=== PATIENT | female | born 1950 | race African-American/Black ===

== ENCOUNTER 2018-02-19 14:05 | Emergency (ER) | payer MEDICARE, OTHER ==
[~2018-02-19] VITALS: Ht 172.7 cm; Wt 104.3 kg
[2018-02-19] MEDS ORDERED: Isovue-300 100ml vial INJ PRN (14:15)
[2018-02-19] MEDS ORDERED: Ketorolac 30mg Inj IV ONE (14:15)
--- NOTE | 2018-02-19 14:20 | Emergency Room Report ---
History of Present Illness General Chief Complaint: Pain Source: Patient Present Illness HPI Patient is a 67-year-old female who presented after increased left-sided leg pain. The patient was having increased severe pain to the left lower extremity. This had began last night. Patient was having increased difficulty with ambulation. She denies recent trauma. Patient reports having crampy pain with did not radiate. She denies any vomiting or diarrhea or abdominal discomfort. She reports having prior history of breast cancer and mastectomy but did not have any chemotherapy. Allergies: Coded Allergies: No Known Allergies (Unverified , 02/19/18) Patient History Past Medical History: see triage record Reviewed Nursing Documentation: PMH: Agreed; PSxH: Agreed Nursing Documentation-PMH Past Medical History: No Stated History Review of Systems All Other Systems: negative except mentioned in HPI Physical Exam Vital Signs Date Time Temp Pulse Resp B/P (MAP) Pulse Ox O2 Delivery O2 Flow Rate FiO2 02/19/18 13:59 97.9 53 18 170/95 98 Room Air 97.9 Sp02 EP Interpretation: reviewed, normal General Appearance: normal inspection, alert, obese Head: atraumatic ENT: normal ENT inspection, hearing grossly normal, normal voice Neck: normal inspection, full range of motion, supple, no bony tend Respiratory: normal inspection, lungs clear, normal breath sounds, no respiratory distress, no retraction, no wheezing Cardiovascular #1: regular rate, rhythm, no edema Cardiovascular #2: 3+ femoral (R), 3+ femoral (L), 3+ dorsalis pedis (R), 3+ dorsalis pedis (L) Gastrointestinal: normal inspection, normal bowel sounds, non tender, soft, no guarding, no hernia Genitourinary: no CVA tenderness Musculoskeletal: back normal, decreased range of motion, other - weakness left lower extremity Neurologic: normal inspection, alert, oriented x3, responsive, 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 Differential diagnosis included but was not limited to herniated disc, cauda equina syndrome, abdominal aortic aneurysm, perforated ulcer, spinal epidural abscess, spinal stenosis, lumbar fracture, metastatic lesion, pyelonephritis. The patient noted to have prior history of malignancy. The CT of the abdomen pelvis was ordered to evaluate for abdominal pathology.A CT abdomen pelvis read by radiology showed the stenosis at L4-L5 with multilevel degenerative changes. The is also noted to have some cystic lesions to both hips. The patient is advised to follow-up with her primary care physician for further evaluation and treatment. Patient was offered admission for further workup and she declined and stated she wanted to go home. The patient is advised to return if he changed her mind. Labs Test 02/19/18 14:26 White Blood Count 5.1 K/UL (4.8-10.8) Red Blood Count 4.80 M/UL (4.20-5.40) Hemoglobin 15.4 G/DL (12.0-16.0) Hematocrit 45.2 % (37.0-47.0) Mean Corpuscular Volume 94 FL (80-99) Mean Corpuscular Hemoglobin 32.1 PG (27.0-31.0) Mean Corpuscular Hemoglobin Concent 34.1 G/DL (32.0-36.0) Red Cell Distribution Width 11.3 % (11.6-14.8) Platelet Count 195 K/UL (150-450) Mean Platelet Volume 10.3 FL (6.5-10.1) Neutrophils (%) (Auto) 68.9 % (45.0-75.0) Lymphocytes (%) (Auto) 24.0 % (20.0-45.0) Monocytes (%) (Auto) 4.5 % (1.0-10.0) Eosinophils (%) (Auto) 1.2 % (0.0-3.0) Basophils (%) (Auto) 1.4 % (0.0-2.0) Prothrombin Time 10.5 SEC (9.30-11.50) Prothromb Time International Ratio 1.0 (0.9-1.1) Activated Partial Thromboplast Time 25 SEC (23-33) Sodium Level 139 MMOL/L (136-145) Potassium Level 3.8 MMOL/L (3.5-5.1) Chloride Level 107 MMOL/L (98-107) Carbon Dioxide Level 22 MMOL/L (21-32) Anion Gap 10 mmol/L (5-15) Blood Urea Nitrogen 14 mg/dL (7-18) Creatinine 0.5 MG/DL (0.55-1.30) Estimat Glomerular Filtration Rate > 60 mL/min (>60) Glucose Level 93 MG/DL (74-106) Calcium Level 8.5 MG/DL (8.5-10.1) Total Bilirubin 0.3 MG/DL (0.2-1.0) Aspartate Amino Transf (AST/SGOT) 23 U/L (15-37) Alanine Aminotransferase (ALT/SGPT) 24 U/L (12-78) Alkaline Phosphatase 75 U/L (46-116) Troponin I 0.000 ng/mL (0.000-0.056) Pro-B-Type Natriuretic Peptide 93 pg/mL (0-125) Total Protein 7.3 G/DL (6.4-8.2) Albumin 3.8 G/DL (3.4-5.0) Globulin 3.5 g/dL Albumin/Globulin Ratio 1.1 (1.0-2.7) Last Vital Signs Date Time Temp Pulse Resp B/P (MAP) Pulse Ox O2 Delivery O2 Flow Rate FiO2 02/19/18 13:59 97.9 53 18 170/95 98 Room Air 97.9 Scripts Oxycodone/Acetaminophen 5-325* (PERCOCET 5-325 MG TABLET*) 1 Each Tablet 1 TAB ORAL Q6H PRN for For Pain, #20 TAB 0 Refills Prov: Ajay Nunez MD 02/19/18 Referrals: NOT CHOSEN [facility]/,REFERRING (PCP) Ajay Nunez MD Feb 19, 2018 14:20
[2018-02-19] MEDS ORDERED: Morphine Sulfate 2mg/ml Inj IVP ONE (14:30)
[2018-02-19 14:48] VITALS: BP 188/73
[2018-02-19 14:48] LABS: BASOPHILS % (AUTO) 1.4 % (0.0-2.0); EOSINOPHILS % (AUTO) 1.2 % (0.0-3.0); HEMATOCRIT 45.2 % (37.0-47.0); HEMOGLOBIN 15.4 G/DL (12.0-16.0); MEAN CORPUSCULAR VOLUME 94 FL (80-99); MONOCYTES % (AUTO) 4.5 % (1.0-10.0); NEUTROPHILS % (AUTO) 68.9 % (45.0-75.0); PLATELET COUNT 195 K/UL (150-450); RED CELL DISTRIBUTION WIDTH 11.3 % (11.6-14.8); WHITE BLOOD COUNT 5.1 K/UL (4.8-10.8)
[2018-02-19 15:03] LABS: ANION GAP 10 mmol/L (5-15); BLOOD UREA NITROGEN 14 mg/dL (7-18); CALCIUM 8.5 MG/DL (8.5-10.1); CARBON DIOXIDE 22 MMOL/L (21-32); CHLORIDE 107 MMOL/L (98-107); CREATININE 0.5 MG/DL (0.55-1.30); POTASSIUM 3.8 MMOL/L (3.5-5.1); SODIUM 139 MMOL/L (136-145)
[2018-02-19 15:14] LABS: ALANINE AMINOTRANSFERASE 24 U/L (12-78); ALBUMIN 3.8 G/DL (3.4-5.0); ALBUMIN/GLOBULIN RATIO 1.1 (1.0-2.7); ALKALINE PHOSPHATASE 75 U/L (46-116); ASPARTATE AMINO TRANSFERASE 23 U/L (15-37); BILIRUBIN,TOTAL 0.3 MG/DL (0.2-1.0)
[2018-02-19] MEDS ORDERED: Morphine Sulfate 4mg/ml Inj (IV USE ONLY) IVP ONE (15:30)
[2018-02-19 16:03] LABS: APPEARANCE,URINE CLEAR; BILIRUBIN, URINE NEGATIVE (NEGATIVE); COLOR,URINE PALE YELLOW; GLUCOSE, URINE (UA) NEGATIVE (NEGATIVE); KETONES,URINE NEGATIVE (NEGATIVE); LEUKOCYTE ESTERASE ,URINE 1+ (NEGATIVE); NITRITE,URINE NEGATIVE (NEGATIVE); PH,URINE 8 (4.5-8.0); PROTEIN,URINE NEGATIVE (NEGATIVE); UROBILINOGEN,URINE NORMAL MG/DL (0.0-1.0)
--- NOTE | 2018-02-19 16:45 | Diagnostic Imaging Report ---
Indication: Abdominal pain Technique: Continuous helical transaxial imaging of the abdomen and pelvis was obtained from the lung bases to the pubic symphysis during intravenous contrast administration. Coronal 2-D reformats were also obtained. Study obtained in a Siemens sensation [address] Automatic Exposure Control was utilized. Total Dose length Product (DLP): [address] Dose Index Volume (CTDIvol): 0.15, 18.16 mGy Comparison: None Findings: Lung bases are clear. Hiatal hernia noted. Liver and spleen are unremarkable. The appendix is seen and appears normal. Diverticula noted in the colon. No definite evidence of acute diverticulitis. No free fluid or free air or evidence of bowel obstruction identified. There is a small cystic focus measuring about 8 mm within the uncinate process of the pancreas. This is incidental. Consider further evaluation. There is a small adrenal nodule on the right measuring approximately 2 x 1.3 cm. Consider MRI evaluation. The uterus and urinary bladder are unremarkable. There is narrowing of intervertebral discs and accompanying endplate osteophyte formation. Hypertrophied facet joints also demonstrated. IMPRESSION: No acute findings in the abdomen or pelvis identified. Diverticulosis. No evidence of acute diverticulitis. Normal appendix. Incidental right adrenal mass. This may be an adenoma. Recommend nonemergent workup with MR 8 mm cystic focus in the uncinate process of the pancreas. This may be an incidental IPMN. Consider nonemergent workup with MRI with gadolinium (pancreas protocol). Degenerative changes of the spine The CT scanner at [facility] is accredited by the [employer] and the scans are performed using dose optimization techniques as appropriate to a performed exam including Automatic Exposure control.
[2018-02-19] MEDS ORDERED: PERCOCET 5-3251 EACH ORAL (17:39)
[2018-02-19 17:45] VITALS: BP 160/70
[2018-02-19] MEDS ORDERED: HYDROcodone/Acetamin 10/325 tab ORAL ONE (18:00)
[2018-02-19 18:03] VITALS: BP 160/70
== END 2018-02-19 18:03 | disposition home or self-care (01) ==
LOC: EDBD 14:05 → EMR 14:17
DX: M54.30 Sciatica, unspecified side (principal)
CPT/HCPCS: 36415; 74177; 80053; 81001; 83880; 84484; 85025; 85610; 85730; 96374; 96375; 99284; J1885; J2270; Q9967